=== PATIENT | male | born 1945 | race Caucasian/White ===

== ENCOUNTER 2017-10-30 12:37 | Emergency (ER) | payer MEDICARE, OTHER ==
[2017-10-30 12:45] VITALS: BP 135/65
--- NOTE | 2017-10-30 13:17 | EDM.PDOC ---
ED HPI GENERAL MEDICAL PROBLEM - General Chief Complaint: Bite:Animal, Insect Stated Complaint: [id number] CAT BITE Time Seen by Provider: 10/30/17 13:10 Source of Information: Reports: Patient, Family, RN, RN Notes Reviewed History Limitations: Reports: No Limitations - History of Present Illness Onset Date: 10/29/17 Onset Time: 09:00 Location: Reports: Upper Extremity, Right Quality: Reports: Ache Severity: Mild Improves with: Reports: None Worsens with: Reports: None Associated Symptoms: Reports: Fever/Chills, Nausea/Vomiting Right Hand Pain Score (Numeric/FACES): 3 - Related Data Allergies Allergy/AdvReac Type Severity Reaction Status Date / Time Sulfa (Sulfonamide Allergy Rash Verified 10/30/17 12:40 Antibiotics) Home Meds: Home Meds metFORMIN HCl [Metformin HCl] 1,000 mg PO BID 01/21/14 [History] Aspirin [Low Dose Aspirin EC] 81 mg PO DAILY 09/17/14 [History] Fish Oil/[place]-3 Fatty Acids [Fish Oil] 1 each PO DAILY 09/17/14 [History] Lisinopril 2.5 mg PO DAILY 09/17/14 [History] Insulin Aspart [NovoLOG] 1 units SQ ASDIRECTED 09/18/14 [History] Insulin Detemir [Levemir] 1 units SQ BIDAC 09/18/14 [History] Calcium Carbonate [Calcium] 600 mg PO DAILY 07/10/16 [History] Multivit-Min/FA/Lycopen/Lutein [Men 50 Plus Multivitamin Tab] 1 each PO DAILY [History] Simvastatin [Zocor] 10 mg PO BEDTIME 07/10/16 [History] Past Medical History Cardiovascular History: Reports: High Cholesterol, Hypertension Gastrointestinal History: Reports: Colon Polyp Endocrine/Metabolic History: Reports: Diabetes, Type II Social & Family History - Tobacco Use Smoking Status *Q: Never Smoker Years of Tobacco use: 0 Second Hand Smoke Exposure: No - Caffeine Use Caffeine Use: Reports: Coffee - Recreational Drug Use Recreational Drug Use: No - Living Situation & Occupation Living situation: Reports: , with Spouse Occupation: Retired ED ROS GENERAL - Review of Systems Review Of Systems: ROS reveals no pertinent complaints other than HPI. ED EXAM, ANIMAL BITE - Physical Exam Exam: See Below Exam Limited By: No Limitations General Appearance: Alert, WD/WN, No Apparent Distress Eye Exam: Bilateral Eye: EOMI, Normal Inspection Ears: Normal External Exam, Hearing Grossly Normal Nose: Normal Inspection Throat/Mouth: Normal Inspection, Normal Voice, No Airway Compromise Head: Atraumatic, Normocephalic Neck: Normal Inspection, Supple, Non-Tender, Full Range of Motion Respiratory/Chest: No Respiratory Distress, Lungs Clear, Normal Breath Sounds, No Accessory Muscle Use, Chest Non-Tender Cardiovascular: Normal Peripheral Pulses, Regular Rate, Rhythm, No Edema, No Gallop, No JVD, No Murmur, No Rub Peripheral Pulses: 2+: Radial (L), Radial (R) GI/Abdominal: Normal Bowel Sounds, Soft, Non-Tender, No Distention, No Abnormal Bruit (Male) Exam: Deferred Rectal (Males) Exam: Deferred Back Exam: Normal Inspection, Full Range of Motion Extremities: Normal Range of Motion, Increased Warmth (right middle finger, up into the hand) Neurological: Alert, Oriented, Normal Cognition, Normal Gait, No Motor/Sensory Deficits Psychiatric: Normal Affect, Normal Mood Skin Exam: Other (puncture ferrera on the right middle finger, erythematous and swelling to the right middle finger, across 2, 3, 4, and 5 proximal phalange joints and across the top of the metacarpals. Oozing purulent drainage from one puncture site on the right middle finger. ) Lymphadenopathy: Bilateral: No Adenopathy Lymphatic: No Adenopathy Course - Vital Signs Last Recorded V/S: Last Vital Signs Temp 97.5 F 10/30/17 12:40 Pulse 90 10/30/17 12:40 Resp 18 10/30/17 12:40 BP 135/65 10/30/17 12:40 Pulse Ox 98 10/30/17 12:40 - Orders/Labs/Meds Orders: Active Orders 24 hr Category Date Time Status CULTURE WOUND [RM] Stat Lab 10/30/17 12:47 Received - Re-Assessments/Exams Free Text/Narrative Re-Assessment/Exam: 10/30/17 14:37 Wound was not incised, but was oozing purulent drainage from a puncture wound on the middle finger. Pressure was placed on the finger to squeeze drainage out. A small amount of purulent/bloody drainage was seen. Departure - Departure Time of Disposition: 13:15 Disposition: Home, Self-Care 01 Clinical Impression: Soft tissue lesion Cellulitis Qualifiers: Site of cellulitis: other site Qualified Code(s): L03.818 - Cellulitis of other sites Cat bite of finger Qualifiers: Encounter type: initial encounter Qualified Code(s): S61.259A - Open bite of unspecified finger without damage to nail, initial encounter - Discharge Information Instructions: Animal Bite, [id number] Forms: ED Department Discharge Additional Instructions: RX: Augmentin Keep area clean and dry Follow up with your primary care facility regarding your tetanus status and if no improvement with infection - My Orders Last 24 Hours: My Active Orders 10/30/17 12:47 CULTURE WOUND [RM] Stat - Assessment/Plan Last 24 Hours: My Active Orders 10/30/17 12:47 CULTURE WOUND [RM] Stat
== END 2017-10-30 13:29 | disposition home or self-care (01) ==
LOC: DL.ED 12:37
DX: S61.252A Open bite of right middle finger without damage to nail, initial encounter (principal); L03.818 Cellulitis of other sites; E78.00 Pure hypercholesterolemia, unspecified; E11.9 Type 2 diabetes mellitus without complications; I10 Essential (primary) hypertension; Z88.2 Allergy status to sulfonamides; Z79.82 Long term (current) use of aspirin; Z79.899 Other long term (current) drug therapy; Z79.4 Long term (current) use of insulin; W55.01XA Bitten by cat, initial encounter
CPT/HCPCS: 87070; 87077; 87186; 99283; 99284

== ENCOUNTER 2019-02-24 12:07 | Emergency (ER) | payer MEDICARE, OTHER ==
[2019-02-24 12:31] VITALS: BP 118/57; PULSE 71
[2019-02-24 13:27] LABS: ANION GAP 15.6; CHLORIDE,CL 99 mmol/L (101-111); SODIUM,NA 135 mmol/L (135-145)
[2019-02-24] MEDS ORDERED: Sodium Chloride 0.9% 1,000 ML IV ONE (13:40)
[2019-02-24] MEDS ORDERED: Sodium Chloride 0.9% 10 ML Syringe FLUSH PRN (13:41)
--- NOTE | 2019-02-24 15:28 | EDM.PDOC ---
Scribed by Marlene Vanessa 02/24/19 1314 for Josue Young MD ED HPI GENERAL MEDICAL PROBLEM - General Chief Complaint: Headache Stated Complaint: DIZZINESS AND SWEATING Time Seen by Provider: 02/24/19 12:38 Source of Information: Reports: Patient, RN, RN Notes Reviewed History Limitations: Reports: No Limitations - History of Present Illness INITIAL COMMENTS - FREE TEXT/NARRATIVE: Patient states he fell well until this morning with sudden onset of feeling hot and sweaty and dizzy. Symptoms were somewhat resolved but feels unwell in general. Denies nausea, vomiting, chest pain or shortness of breath. He has been exposed to influenza over the past week. Admits to some mild runny nose that began last evening. Denies cough. Onset: Today Duration: Getting Worse Location: Reports: Generalized Quality: Reports: Ache Severity: Mild Improves with: Reports: None Worsens with: Reports: None Associated Symptoms: Reports: No Other Symptoms - Related Data Allergies Allergy/AdvReac Type Severity Reaction Status Date / Time Sulfa (Sulfonamide Allergy Rash Verified 02/24/19 12:13 Antibiotics) Home Meds: Home Meds metFORMIN HCl [Metformin HCl] 1,000 mg PO BID 01/21/14 [History] Aspirin [Low Dose Aspirin EC] 81 mg PO DAILY 09/17/14 [History] Fish Oil/[place]-3 Fatty Acids [Fish Oil] 1 each PO DAILY 09/17/14 [History] Lisinopril 2.5 mg PO DAILY 09/17/14 [History] Insulin Aspart [NovoLOG] 1 units SQ ASDIRECTED 09/18/14 [History] Insulin Detemir [Levemir] 16 units SQ BIDAC 09/18/14 [History] Calcium Carbonate [Calcium] 600 mg PO DAILY 07/10/16 [History] Multivit-Min/FA/Lycopen/Lutein [Men 50 Plus Multivitamin Tab] 1 each PO DAILY [History] Simvastatin [Zocor] 10 mg PO BEDTIME 07/10/16 [History] Past Medical History Cardiovascular History: Reports: High Cholesterol, Hypertension Gastrointestinal History: Reports: Colon Polyp Endocrine/Metabolic History: Reports: Diabetes, Type II Social & Family History - Family History Family Medical History: Noncontributory - Caffeine Use Caffeine Use: Reports: Coffee - Living Situation & Occupation Living situation: Reports: , with Spouse Occupation: Retired ED ROS GENERAL - Review of Systems Review Of Systems: ROS reveals no pertinent complaints other than HPI. ED EXAM, GENERAL - Physical Exam Exam: See Below Exam Limited By: No Limitations General Appearance: Alert, WD/WN, No Apparent Distress Eye Exam: Bilateral Eye: EOMI, Normal Inspection, PERRL Ears: Normal External Exam Nose: No Blood, Nasal Drainage (mild clear mucus drainage) Throat/Mouth: Normal Inspection, Normal Lips, Normal Teeth, Normal Gums, Normal Oropharynx, Normal Voice, No Airway Compromise Head: Atraumatic, Normocephalic Neck: Normal Inspection, Supple, Non-Tender, Full Range of Motion. No: Lymphadenopathy (L), Lymphadenopathy (R) Respiratory/Chest: No Respiratory Distress, No Accessory Muscle Use, Rhonchi ( mild, bibasilar). No: Crackles, Rales, Wheezing Cardiovascular: Regular Rate, Rhythm, No Edema, No JVD, No Murmur GI/Abdominal: Normal Bowel Sounds, Soft, Non-Tender, No Organomegaly, No Distention, No Abnormal Bruit, No Mass (Male) Exam: Deferred Rectal (Males) Exam: Deferred Back Exam: Normal Inspection, Full Range of Motion. No: CVA Tenderness (L), CVA Tenderness (R) Extremities: Normal Inspection, Normal Range of Motion, Non-Tender, Normal Capillary Refill, No Pedal Edema Neurological: Alert, Oriented, CN II-XII Intact, Normal Cognition, No Motor/ Sensory Deficits Psychiatric: Normal Affect, Normal Mood Skin Exam: Warm, Dry, Intact, Normal Color, No Rash EKG INTERPRETATION EKG Date: 02/24/19 Time: 12:17 Rhythm: Other (sinus rhythm) Rate (Beats/Min): [address] [place]: Normal P-Wave: Present QRS: Other (borderline low voltage in frontal leads) ST-T: Normal QT: Normal Comparison: NA - No Prior EKG Course - Vital Signs Last Recorded V/S: Last Vital Signs Temp 35.8 C 02/24/19 12:29 Pulse 71 02/24/19 12:29 Resp 12 02/24/19 12:29 BP 118/57 L 02/24/19 12:29 Pulse Ox 98 02/24/19 12:29 Orthostatic Blood Pressure [ 106/51 Standing] Orthostatic Blood Pressure [ 107/58 Sitting] Orthostatic Blood Pressure [ 98/55 Supine] Not orthostatic following NS 1 liter IV bolus. - Orders/Labs/Meds Orders: Active Orders 24 hr Category Date Time Status EKG 12 Lead [EKG Documentation Completion] [RC] STAT Care 02/24/19 12:50 Active Orthostatic Vital Signs [RC] ASDIRECTED Care 02/24/19 12:49 Active Peripheral IV Care [RC] . DIRECTED Care 02/24/19 13:41 Active Sodium Chloride 0.9% [Saline Flush] Med 02/24/19 13:41 Active 10 ml FLUSH ASDIRECTED PRN Peripheral IV Insertion Adult [OM.PC] Stat Oth 02/24/19 13:41 Ordered Medication Orders Sodium Chloride (Saline Flush) 10 ml FLUSH ASDIRECTED PRN PRN Reason: Keep Vein Open Last Admin: 02/24/19 13:56 Dose: 10 ml Labs: Laboratory Tests 02/24/19 02/24/19 Range/Units 12:56 12:56 WBC 9.9 (5.0-10.0) 10^3/uL RBC 5.00 (4.6-6.2) 10^6/uL Hgb 15.8 (14.0-18.0) g/dL Hct 46.2 (40.0-54.0) % MCV 92.4 (80-100) fL MCH 31.6 (27.0-34.0) pg MCHC 34.2 (33.0-35.0) g/dL Plt Count 207 (150-450) 10^3/uL Neut % (Auto) 92.2 H (42.2-75.2) % Lymph % (Auto) 2.4 L (20.5-50.1) % [place] % (Auto) 4.4 (2-8) % Eos % (Auto) 0.8 L (1.0-3.0) % Baso % (Auto) 0.2 (0.0-1.0) % Sodium 135 (135-145) mmol/L Potassium 5.6 H (3.6-5.0) mmol/L Chloride 99 L (101-111) mmol/L Carbon Dioxide 26.0 (21.0-31.0) mmol/L Anion Gap 15.6 BUN 22 H (7-18) mg/dL Creatinine 1.0 (0.6-1.3) mg/dL Est Cr Clr Drug Dosing 67.86 mL/min Estimated GFR (MDRD) > 60 BUN/Creatinine Ratio 22.00 Glucose 279 H (74-105) mg/dL Calcium 9.0 (8.4-10.2) mg/dl Total Bilirubin 1.0 (0.2-1.0) mg/dL AST 20 (10-42) IU/L ALT 16 (10-60) IU/L Alkaline Phosphatase 78 (42-121) IU/L Total Protein 6.7 (6.7-8.2) g/dl Albumin 4.0 (3.2-5.5) g/dl Globulin 2.7 Albumin/Globulin Ratio 1.48 Influenza A: Negative. Influenza B: Negative. Meds: Medications Generic Name Dose Route Start Last Admin Trade Name Freq PRN Reason Stop Dose Admin Sodium Chloride 10 ml 02/24/19 13:41 02/24/19 13:56 Saline Flush FLUSH 10 ml ASDIRECTED PRN Administration Keep Vein Open Discontinued Medications Generic Name Dose Route Start Last Admin Trade Name Freq PRN Reason Stop Dose Admin Sodium Chloride 1,000 mls @ 999 mls/hr 02/24/19 13:40 02/24/19 13:56 Normal Saline IV 02/24/19 14:40 999 mls/hr .BOLUS ONE Administration - Radiology Interpretation Free Text/Narrative:: [facility] Final Radiology Report Call: [phone] assistance Online chat: [email or web address] Name: DAFNE LEE Age: 73Years M Date: 02/24/2019 SSN: -- : [id number] Study: XR CHEST 2 VIEWS Requesting Physician: JOSUE YOUNG Images: 2 Addl Studies: Provided Clinical History: Contrast: Contrast Medium: Contrast Amount: Contrast Method: CONFIDENTIALITY STATEMENT This report is intended only for use by the referring physician, and only in accordance with law. If you received this in error, call [phone]. Page 1 of 1 EXAM: XR Chest, 2 Views EXAM DATE/TIME: 02/24/2019 1:01 PM CLINICAL HISTORY: 73 years old, male; Signs and symptoms; Other: Bibasilar rhonchi TECHNIQUE: Imaging protocol: XR of the chest, 2 views. COMPARISON: CR Chest 2V 01/21/2014 7:48 AM FINDINGS: Lungs: Again noted is mild parabronchial and fissural thickening. The lungs are otherwise clear.. Pleural space: Unremarkable. No pleural effusion. No pneumothorax. Heart/Mediastinum: Unremarkable. No cardiomegaly. Bones/joints: Unremarkable. IMPRESSION: No acute findings. Thank you for allowing us to participate in the care of your patient. Dictated and Authenticated by: Jorge Luis Ramirez MD 02/24/2019 1:21 PM Central Time ([place] & [place]) Departure - Departure Time of Disposition: 15:24 Disposition: Home, Self-Care 01 Condition: Good Clinical Impression: Orthostatic dizziness, Dehydration Hyperglycemia due to type 2 diabetes mellitus Qualifiers: Diabetes mellitus retirement insulin use: with watermelon inspector use Qualified Code(s): E11.65 - Type 2 diabetes mellitus with hyperglycemia; Z79.4 - FDC (current ) use of insulin - Discharge Information *PRESCRIPTION DRUG MONITORING PROGRAM REVIEWED*: No *COPY OF PRESCRIPTION DRUG MONITORING REPORT IN PATIENT OLU: No Instructions: Dehydration, Adult, [id number], Orthostatic Hypotension Forms: ED Department Discharge Additional Instructions: Drink plenty of water. Monitor your blood sugar closely. Follow up in clinic if not completely improved in 2 to 3 days. Return to ER if worse at any time, or if any new or concerning symptoms develop. - My Orders Last 24 Hours: My Active Orders 02/24/19 12:49 Orthostatic Vital Signs [RC] ASDIRECTED 02/24/19 12:50 EKG 12 Lead [EKG Documentation Completion] [RC] STAT 02/24/19 13:41 Peripheral IV Care [RC] . DIRECTED Sodium Chloride 0.9% [Saline Flush] 10 ml FLUSH ASDIRECTED PRN Peripheral IV Insertion Adult [OM.PC] Stat - Assessment/Plan Last 24 Hours: My Active Orders 02/24/19 12:49 Orthostatic Vital Signs [RC] ASDIRECTED 02/24/19 12:50 EKG 12 Lead [EKG Documentation Completion] [RC] STAT 02/24/19 13:41 Peripheral IV Care [RC] . DIRECTED Sodium Chloride 0.9% [Saline Flush] 10 ml FLUSH ASDIRECTED PRN Peripheral IV Insertion Adult [OM.PC] Stat I have read and agree with the documentation that has been completed regarding this visit. By signing this record, I attest that the documentation was completed in my physical presence and is an accurate record of the encounter.
== END 2019-02-24 15:43 | disposition home or self-care (01) ==
LOC: DL.ED 12:07
DX: E86.0 Dehydration (principal); E11.65 Type 2 diabetes mellitus with hyperglycemia; I10 Essential (primary) hypertension; E78.00 Pure hypercholesterolemia, unspecified; Z79.82 Long term (current) use of aspirin; Z79.899 Other long term (current) drug therapy; Z79.4 Long term (current) use of insulin; Z88.2 Allergy status to sulfonamides
CPT/HCPCS: 36415; 71046; 80053; 85025; 87804; 93005; 96360; 99284; J7030; 99283